=== PATIENT | male | born 1965 | race Caucasian/White ===

== ENCOUNTER → 2024-11-03 11:59 | Outpatient (CLI) | payer OTHER, SELFPAY ==
--- NOTE | 2024-11-03 12:09 | DI.RAD.S_ITS ---
PROCEDURE: XR LUMBAR SPINE 2-3V INDICATIONS: DISABILITY TECHNIQUE: 3 views of the lumbar spine were acquired. COMPARISON: None. FINDINGS: Bones: 5 [id number] vertebrae are present. Mild levo curvature centered at the L3-L4 level. 2 mm retrolisthesis L1-L2, L2-L3 and L3-L4. Mild disc height loss L5-S1 level. Mild facet joint arthropathy L5-S1. Probable limbus vertebra at the L5 level. No vertebral body compression fractures. No suspicious bony lesions. Soft tissues: Overlying bowel gas pattern is normal. No suspicious soft tissue calcifications. IMPRESSION: 1. Appearance suggesting limbus vertebra at the L5 level. 2. Multilevel grade 1 retrolisthesis. 3. Mild L5-S1 degenerative disc and facet disease. Dictated by: Erickson [place] Interpreted: Kalyan Carrasco MD on 11/03/2024 at 13:06 Transcribed by: BRIAN on 11/03/2024 at 13:08 Approved by: Kalyan Carrasco M.D. on 11/04/2024 at 8:00
== END ==
PROVIDERS: Referring Provider Chiropractor; Visit Provider Chiropractor
DX: M43.16 Spondylolisthesis, lumbar region (principal); M47.817 Spondylosis without myelopathy or radiculopathy, lumbosacral region; M51.379 Other intervertebral disc degeneration, lumbosacral region without mention of lumbar back pain or lower extremity pain; M54.9 Dorsalgia, unspecified
CPT/HCPCS: 72100